=== PATIENT | male | born 1955 | race Caucasian/White ===

== ENCOUNTER → 2016-05-17 | Outpatient (CLI) | payer OTHER ==
[~2016-05-17] MED LIST: ACET-1311 PO; ACET-749 PO; ASCO-63 PO; ASPI1CHW12 PO; CHOL1000 PO; CIPR-255 PO; DTR/5 PO; GLUCTAB7 PO; IBUP-1050 PO; MAGN250T3 PO; MAGNESIUM PO; SILO4CAP PO; VITAMIN D PO
[2016-05-17 17:37] LABS: BASO % 0.3 %; BASO ABS # 0.03 K/uL (0-0.2); COMPLETE YES; HEMATOCRIT 42.2 % (42-52); IG% 0.1 %; LYMPH % 37.3 %; MEAN CELL VOLUME 91.1 fL (80-100); MEAN CORPUSCULAR HGB CONC 35.1 g/dl (32-36); MEAN PLATELET VOLUME 9.9 fL (7.4-10.4); MONO % 7.3 %; PLATELET COUNT 236 K/uL (130-400); RED BLOOD COUNT 4.63 M/uL (4.7-6.1); WHITE BLOOD COUNT 9.65 K/uL (4.8-10.8)
[2016-05-17 17:55] LABS: BLOOD UREA NITROGEN 17 mg/dl (7-18); BUN/CREATININE RATIO 19.1 (10-20); CALCIUM 8.6 mg/dl (8.5-10.1); CARBON DIOXIDE 27 mmol/L (21-32); CHLORIDE 104 mmol/L (98-107); GLUCOSE 98 mg/dl (70-99); POTASSIUM 4.1 mmol/L (3.5-5.1); SODIUM 139 mmol/L (136-145)
== END | disposition home or self-care (01) ==
LOC: C.LAB 17:13
PROVIDERS: ATTEND Urology
DX: N35.9 Urethral stricture, unspecified (principal); R35.0 Frequency of micturition

== ENCOUNTER → 2016-05-25 | Day surgery (SDC) | payer OTHER ==
[2016-05-20 07:12] VITALS: BMI 26.0
[~2016-05-25] VITALS: Ht 182.9 cm; Wt 86.4 kg
[~2016-05-25] MED LIST changes: +ACETAMINOPHEN 325 MG TAB PO PRN; +ATROPINE SULFATE 0.1 MG/ML 5ML SYR IV PRN; +CIPROFLOXACIN / D5W 400 MG IV SCH; +FENTANYL CITRATE INJ 50 MCG/1 ML 2 ML VIAL IV PRN; +FENTANYL CITRATE INJ 50 MCG/1 ML 2 ML VIAL ONE; +GLYCOPYRROLATE INJ 0.2 MG/ML VIAL ONE; +HYDROCODONE/ACETAMOPHEN 5/325MG TAB PO PRN; +KETOROLAC TROMETHAMINE 30 MG/ML VIAL IV. PRN; +LACTATED RINGER'S 1000ML 1,000 ML IV SCH; +LIDOCAINE HCL 2% 2 ML VIAL (20MG/ML) ONE; -MAGNESIUM PO; +MIDAZOLAM HCL 1 MG/ML 2ML VIAL ONE; +ONDANSETRON INJ 2 MG/ML 2 ML VIAL IV PRN; +ONDANSETRON INJ 2 MG/ML 2 ML VIAL ONE; +OXYBUTYNIN CHLORIDE 5 MG TAB PO STA; +PROPOFOL IV EMULSION 10 MG/ML 20 ML VIAL IV ONE; +SODIUM CHLORIDE 0.9% 1000ML 1,000 ML IV SCH; -VITAMIN D PO
[2016-05-25 11:16] VITALS: BP 113/73; PULSE 64; TEMP 36.6; O2SAT 97; Ht 182.9 cm; Wt 86.4 kg
--- NOTE | 2016-05-25 12:09 | History & Physical Bridge Note ---
H&P Re-Evaluation Bridge Note: I have examined the patient, reviewed the History & Physical and in the interval since the performance of the History & Physical I have noted the following changes of clinical significance: No changes noted
--- NOTE | 2016-05-25 12:53 | [facility] Post Operative Brief Note ---
Immediate Operative Summary Operative Date May 25, 2016. Pre-Operative Diagnosis Urethral stricture Post-Operative Diagnosis Same as preoperative diagnosis Procedure(s) Performed Urethral Dilation; Cystoscopy Surgeon Dr. Lamonte Null Compact Assembler Surgeon(s) None Estimated Blood Loss 0 mL Findings Bulbar urethral stricture; relatively thin. Open prostatitic fossa and bladder neck. Specimens No pathology specimens per surgeon Drains 18F councill tip catheter Anesthesia Gen Complication(s) None Disposition Recovery Room / PACU (stable)
--- NOTE | 2016-05-25 12:58 | Discharge Instructions ---
Discharge Instructions Date of Service May 25, 2016. Admission Reason for Admission: Urethral Stricture Discharge Discharge Diagnosis / Problem: Urethral stricture Discharge Goals Goal(s): Decrease discomfort, Improve function, Increase independence, Improve disease control, Prevent Disease Progression Activity Recommendations Activity Limitations: resume your previous activity Lifting Limitations: none Exercise/Sports Limitations: none May Resume Sexual Activity: when tolerated Shower/Bathe: no limitations Driving or Machine Use: no limitations (as long as you are off of pain medications) . Instructions / Follow-Up Instructions / Follow-Up Please keep your previously scheduled follow up with Dr. Null for catheter removal. Discharge Diet Recommended Diet: Regular Diet Procedures Procedures Performed: Urethral Dilation; Cystoscopy Pending Studies Studies pending at discharge: no Medical Emergencies . Who to Call and When: Medical Emergencies: If at any time you feel your situation is an emergency, please call 911 immediately. . Non-Emergent Contact Non-Emergency issues call your: Urologist Call Non-Emergent contact if: you have a fever, temperature is above 101.5, your pain is not controlled, your pain is worsening . . "Provider Documentation" section prepared by Payam Joe. VTE Core Measure Inpt VTE Proph given/why not?: Treatment not indicated [place] Drug Monitoring Program Search Results: patient reviewed within database, no issues identified
--- NOTE | 2016-05-25 13:50 | Anesthesiology Progress Note ---
Anesthesia Post Op Note Date & Time May 25, 2016 at 13:49 Vital Signs Pain Intensity: 3 Vital Signs Past 12 Hours Date Time Temp Pulse Resp B/P Pulse Ox O2 Delivery O2 Flow Rate FiO2 05/25/16 13:45 36.2 62 16 100/59 95 Room Air 05/25/16 13:35 36.2 57 16 95/61 95 Room Air 05/25/16 13:25 56 16 95/66 93 Room Air 05/25/16 13:15 56 16 96/63 99 Mask 10 05/25/16 13:05 58 14 95/62 98 Mask 10 05/25/16 12:59 36.7 60 14 105/64 98 Mask 10 05/25/16 11:16 36.6 64 20 113/73 97 Room Air Notes Mental Status: alert / awake / arousable, participated in evaluation Pt Amnestic to Procedure: Yes Nausea / Vomiting: adequately controlled Pain: adequately controlled Airway Patency, RR, SpO2: stable & adequate BP & HR: stable & adequate Hydration State: stable & adequate Anesthetic Complications: no major complications apparent
--- NOTE | 2016-05-25 14:07 | OPERATIVE REPORT ---
DATE OF OPERATION: 05/25/2016 PREOPERATIVE DIAGNOSIS: Urethral stricture. POSTOPERATIVE DIAGNOSIS: Bulbar urethral stricture. PROCEDURE PERFORMED: Cystoscopy, urethral dilation and Godoy catheter placement. SURGEON: Dr. Lamonte Null. ANESTHESIA: General. ESTIMATED BLOOD LOSS: 0. URINE OUTPUT: Not recorded. SPECIMENS: None. COMPLICATIONS: None. DRAINS: 18-[place] Godoy catheter. DESCRIPTION OF THE PROCEDURE: Sarwat Gilbert was identified in the preoperative holding area. Appropriate informed consents were reviewed and completed and the patient was transported to the operating suite. Upon arrival, he received appropriate preoperative antibiotics in the form of ciprofloxacin. Adequate general anesthesia was achieved and the patient was placed in dorsal lithotomy position where he was sterilely prepped and draped in standard fashion. I began the case by passing a 22-[place]ine[place] cystoscope per urethra. As I reached the bulb, there was a tight bulbar urethral stricture with a pinpoint opening. It appeared to be relatively thin despite the narrow opening. I was able to intubate this with a sensor wire, guide the wire up into the bladder. I withdrew the cystoscope. I subsequently passed a 6 [place]ine[place] open-ended catheter over the wire and observed clear urine draining from this confirming intravesical placement. I replaced the wire and then began sequential dilation. I utilized S curve retractors to dilate from 12 Guinean to 20 Guinean. There was no difficulty with passing these and there was no blood visualized. After dilating to 20 [place]ine[place] easily I withdrew this and I scoped alongside the wire. I was able to easily navigate through the now dilated stricture which appeared to be relatively widely patent. He is status post TURP in his bladder neck and prostate appeared to be widely patent as well. Inspection of the bladder was carried out and the bladder appeared to be very healthy. I left wire in the bladder and the bladder full and I withdrew the scope. I placed an 18 [place] Councill-tip catheter over the wire with return of clear urine. I inflated the balloon with 10 mL of sterile water and concluded the case. The patient was subsequently extubated and taken to the PACU in stable condition. I attest to the content of the Intraoperative Record and any orders documented therein. Any exceptio ns are noted below.
[2016-05-25 14:15] VITALS: BP 99/65; PULSE 57; TEMP 36; O2SAT 98
[2016-05-25 14:45] VITALS: BP 106/72; PULSE 64; O2SAT 98
== END | disposition home or self-care (01) ==
LOC: C.ACU 10:43
PROVIDERS: ATTEND Urology
DX: N35.9 Urethral stricture, unspecified (principal); R35.0 Frequency of micturition; N40.1 Benign prostatic hyperplasia with lower urinary tract symptoms; N13.8 Other obstructive and reflux uropathy; Z82.49 Family history of ischemic heart disease and other diseases of the circulatory system; Z80.42 Family history of malignant neoplasm of prostate; Z79.82 Long term (current) use of aspirin